=== PATIENT | female | born 1935 | race Caucasian/White ===

== ENCOUNTER 2023-05-31 13:12 | Emergency (ER) | payer MEDICARE, OTHER, SELFPAY ==
[2023-05-31 13:20] VITALS: BP 154/82; PULSE 80; RESP 18; TEMP 38.2; O2SAT 99; BMI 23.2
--- NOTE | 2023-05-31 13:27 | ED.GENADUL1 ---
HPI - General Adult General Chief complaint: Upper Respiratory Infection Stated complaint: COVID + Time Seen by Provider: 05/31/23 13:20 Source: patient Mode of arrival: walk-in Limitations: no limitations History of Present Illness HPI narrative: Patient tested positive for Covid this morning and came to the ED to get Quirino. Her symptoms started yesterday - cough, congestion, fatigue and muscle aches. Her PCP is not in this area. No GI or symptoms. Related Data Allergies Allergy/AdvReac Type Severity Reaction Status Date / Time Penicillins Allergy Unknown Verified 05/31/23 13:20 Exam Narrative Exam Narrative: Nurses notes and vital signs reviewed and patient is not hypoxic. FEBRILE 100.7F General: Well-appearing and in no apparent distress. Skin: Warm, dry, no pallor noted. Head: Normocephalic, atraumatic. Neck: Supple, non-tender. no cervical lymphadenopathy Eye: Pupils are equal, round and EOMI. No scleral icterus. Ears, Nose, Mouth, and Throat: Mild nasal mucosal hypertrophy. Oral mucosa is moist, no posterior oropharynx erythema, uvula is mid-line Cardiovascular: Regular Rate and Rhythm without murmur, gallop or rub. Respiratory: No accessory muscle use or respiratory distress. Lungs are clear to auscultation, no wheezing, rales or rhonchi Musculoskeletal: normal ROM, no calf or popliteal tenderness, no lower extremity edema/swelling GI: Abdomen is soft, non-distended. Normal bowel sounds. No tenderness to palpation. No rebound, guarding, or rigidity noted. Neurological: A&O x4. No cranial nerve dysfunction observed. No truncal ataxia. Moves all extremities. Sensation intact. Psychiatric: Cooperative and interactive. Normal mood and affect. Constitutional Vital Signs, click to edit/add: Last Vital Signs Temp 100.7 F H 05/31/23 13:20 Pulse 80 05/31/23 13:20 Resp 18 05/31/23 13:20 BP 154/82 H 05/31/23 13:20 Pulse Ox 99 05/31/23 13:20 O2 Del Method Room Air 05/31/23 13:20 Course Vital Signs Vital signs: Vital Signs Temperature 100.7 F H 05/31/23 13:20 Pulse Rate 80 05/31/23 13:20 Respiratory Rate 18 05/31/23 13:20 Blood Pressure 154/82 H 11/12/23 13:20 Pulse Oximetry 99 05/31/23 13:20 Oxygen Delivery Method Room Air 05/31/23 13:20 Temperature 100.7 F H 05/31/23 13:20 Pulse Rate 80 05/31/23 13:20 Respiratory Rate 18 05/31/23 13:20 Blood Pressure 154/82 H 05/31/23 13:20 Pulse Oximetry 99 05/31/23 13:20 Oxygen Delivery Method Room Air 05/31/23 13:20 Medical Decision Making MDM Narrative Medical decision making narrative: the patient is positive for cocaine at home. She has low-grade temperature increase. She took Tylenol about four hours ago. I ordered Paxil and for this patient. Patient advised to rest, stay at home, practice social distancing, take Motrin and Tylenol for pain and fever if not allergic, stay well hydrated with Gatorade or similar drinks if vomiting or eat as tolerated if not and take any meds as prescribed. Reviewed reasons to return including rapid increase in respiratory rate, shortness of breath, confusion, inability to keep down sips of swallowed liquids for more than 24 hours. Asked patient to encourage any ill contacts to stay home and practice similar advice. Discharge Plan Discharge Chief Complaint: Upper Respiratory Infection Clinical Impression: COVID Patient Disposition: Home, Self-Care Time of Disposition Decision: 13:37 Instructions: COVID-19 (Coronavirus Disease 2019) (ED) Stand Alone Forms: Portal Instructions Referrals: NATALIE UREÑA [Primary Care Provider] - 1 week
== END 2023-05-31 13:51 | disposition home or self-care (01) ==
PROVIDERS: Emergency Provider Emergency Medicine; PCP Family Medicine
DX: U07.1 COVID-19 (principal)
CPT/HCPCS: 99283

== ENCOUNTER 2023-06-13 12:45 | Emergency (ER) | payer MEDICARE, OTHER, SELFPAY ==
[2023-06-13] VITALS (16 sets, daily range): BP systolic 173–196; BP diastolic 84–102; PULSE 54–113; RESP 15–24; TEMP 36.5; O2SAT 98–99; BMI 22.3
--- NOTE | 2023-06-13 13:10 | ED.AMS1 ---
HPI - Altered Mental Status General Chief Complaint: Altered Mental Status Stated Complaint: CONFUSION Time Seen by Provider: 06/13/23 13:02 Source: patient Mode of arrival: walk-in History of Present Illness HPI narrative: this 88-year-old is here with family members they're concerned about increasing confusion and forgetfulness. She lives alone. Apparently her son was staying with her for several weeks while she is undergoing testing at [facility]. He is returning to [place] now she is alone again. She does not have a local practitioner family doctor. She was in this hospital several weeks ago and had Covid nineteen illness. She has not had any trauma or injury. The family member brought her in says she was confused about trying to get dressed today. She is not having any pain or discomfort headache or difficulty breathing. She is not a very reliable historian. She is not able to tell us the names of any of her medication. She does not know what year it is. She was able tells name of her doctor and she was able to tells where her son lives but her overall memory is quite limited. Related Data Home Medications Medication Instructions Recorded Confirmed acetaminophen 650 mg 650 mg PO Q12H PRN pain 06/13/23 06/13/23 tablet,extended release (Arthritis Pain Reliever) amlodipine 10 mg tablet 10 mg PO DAILY 06/13/23 06/13/23 biotin 5,000 mcg chewable tablet 5,000 mcg PO DAILY 06/13/23 06/13/23 calcium carbonate 600 mg-vitamin 1 tab PO BID 06/13/23 06/13/23 D3 5 mcg (200 unit) tablet (Calcium 600 + D(3)) linaclotide 72 mcg capsule 72 mcg PO QID 06/13/23 06/13/23 (Linzess) lisinopril 40 mg tablet 40 mg PO DAILY 06/13/23 06/13/23 loratadine 10 mg capsule 10 mg PO DAILY 06/13/23 06/13/23 psyllium husk 0.4 gram capsule 0.4 g PO DAILY 06/13/23 06/13/23 (Metamucil) vit C 250 mg-vit E 90 mg-zinc 40 1 tab PO BID 06/13/23 06/13/23 mg-copper 1 [id number] capsule (PreserVision AREDS-2) Allergies Allergy/AdvReac Type Severity Reaction Status Date / Time Penicillins Allergy Unknown Verified 05/31/23 13:20 Exam Narrative Exam Narrative: vital signs are noted. She has on hypertension meds. She is afebrile she has no respiratory distress she denies any discomfort. She follows all simple and complex commands. She knows she is at the hospital and she concurs that she getting somewhat forgetful. Her skin is warm and dry she's not pale or anemic not clammy or diaphoretic. HEENT shows no evidence of pharyngitis or airways patent. Her neck is soft and supple there is no meningeal irritation. There is no evidence craniofacial trauma injury or falls. Her lungs are clear with no wheezes rales or rhonchi Heart sounds are normal with no S3-S4 or murmur. Abdomen soft and supple to palpation. Neurologically she moves about comfortably on the cart is no focal motor neurological deficits. As mentioned earlier she does not know the day of the week she does not know the year she does know the will be the next holiday. Constitutional Vital Signs, click to edit/add: Last Vital Signs Temp 97.7 F 06/13/23 12:49 Pulse 88 06/13/23 12:49 Resp 16 06/13/23 12:49 BP 184/90 H 06/13/23 12:49 Pulse Ox 99 06/13/23 12:49 O2 Del Method Room Air 06/13/23 12:49 Course Vital Signs Vital signs: Vital Signs Temperature 97.7 F 06/13/23 12:49 Pulse Rate 88 06/13/23 12:49 Respiratory Rate 16 06/13/23 12:49 Blood Pressure 184/90 H 06/13/23 12:49 Pulse Oximetry 99 06/13/23 12:49 Oxygen Delivery Method Room Air 06/13/23 12:49 Temperature 97.7 F 06/13/23 12:49 Pulse Rate 88 06/13/23 12:49 Respiratory Rate 16 06/13/23 12:49 Blood Pressure 184/90 H 06/13/23 12:49 Pulse Oximetry 99 06/13/23 12:49 Oxygen Delivery Method Room Air 06/13/23 12:49 MDM - Altered Mental Status MDM Narrative Medical decision making narrative: patient's workup here in the hospital including lab urinalysis CT scan and chest x-ray are all negative. I don't believe she is safe to be at home by herself. I spoke with the son who is in [place] and he's got make arrangements for other family members to provide assistance. We offered them hospitalization but he declined at this time. She will need close observation and assistance at home that was explained in detail. He assures us that he'll be out of provide assistance for her at home. Discharge Plan Discharge Chief Complaint: Altered Mental Status Clinical Impression: Altered mental status Patient Disposition: Home, Self-Care Time of Disposition Decision: 14:47 Prescriptions / Home Meds: No Action amlodipine 10 mg tablet 10 mg PO DAILY lisinopril 40 mg tablet 40 mg PO DAILY Linzess 72 mcg capsule 72 mcg PO QID Patient Comments: every morning on empty stomach and 30 min before each meal PreserVision AREDS-2 250-90-40-1 mg capsule 1 tab PO BID biotin 5,000 mcg tablet,chewable 5,000 mcg PO DAILY loratadine 10 mg capsule 10 mg PO DAILY calcium carbonate-vitamin D3 [Calcium 600 + D(3)] 600 mg-5 mcg (200 unit) tablet 1 tab PO BID psyllium husk [Metamucil] 0.4 gram capsule 0.4 g PO DAILY acetaminophen [Arthritis Pain Reliever] 650 mg tablet extended release 650 mg PO Q12H PRN (Reason: pain) Additional Instructions: close assistance by the family members. Return at any time for any further change. Stand Alone Forms: Portal Instructions Referrals: NATALIE UREÑA [Primary Care Provider] - 1 week
--- NOTE | 2023-06-13 13:12 | ECG_ITS ---
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
--- NOTE | 2023-06-13 13:12 | CT_ITS ---
The [address] [address] Patient Name: HALEY TALBERT MRN: [id number] date: 1935 Sex: F Assigned Patient Location: ER Current Patient Location: ER Accession/Order Number: [id number] Exam Date: 06/13/2023 13:28 Report Date: 06/13/2023 14:00 At the request of: MAAME CLEMENTS Procedure: CT head/brain wo con CT head/brain wo con, 06/13/2023 1:28 PM EST INDICATION: Confusion COMPARISON: No prior CT scan of the head available for comparison at the time of this dictation. TECHNIQUE: Axial CT images of the brain from skull base to vertex, including portions of the face and sinuses, were obtained without contrast. Multiplanar reformatted images were generated and reviewed as needed. FINDINGS: No intracranial mass, hydrocephalus, midline shift or acute hemorrhage. No extra-axial collection. Periventricular and deep white matter microvascular ischemic change. Rodarte-white matter differentiation is preserved. The paranasal sinuses and mastoid air cells are clear. Orbits are within normal limits. No acute skull fracture. 7 mm calcified extra-axial nodule left frontal bone likely a meningioma or osteoma. CT/CT head/brain wo con IMPRESSION: No acute intracranial abnormality. Electronically authenticated by: JUDY ISAAC Date: 06/13/2023 14:00
[2023-06-13 13:27] LABS: Basophils Absolute Auto 0.1 10^3/uL (0.0-0.1); Basophils Percent Auto 0.4 % (0.2-2.0); Eosinophils Absolute Auto 0.1 10^3/uL (0.0-0.7); Eosinophils Percent Auto 0.7 % (0.9-7.0); Hematocrit 44.2 % (36.0-48.0); Hemoglobin 14.4 g/dL (12.0-16.0); Immature Granulocytes Abs Auto 0.04 10^3/uL (0.00-0.03); Immature Granulocytes Pct Auto 0.3 % (0.0-0.5); Lymphocytes Absolute Auto 1.5 10^3/uL (1.2-3.8); Mean Corpuscular HGB Conc 32.6 g/dL (29.9-35.2); Mean Corpuscular Hemoglobin 28.7 pg (26.7-34.0); Mean Corpuscular Volume 88.2 fL (81.0-99.0); Mean Platelet Volume 10.6 fL (9.5-13.5); Monocytes Percent Auto 8.9 % (1.7-12.0); Neutrophils Absolute Auto 8.9 10^3/uL (1.4-6.5); Neutrophils Percent Auto 76.7 % (43.0-75.0); Platelet Count 386 10^3/uL (150-450); Red Blood Count 5.01 10^6/uL (4.20-5.40); Red Cell Distribution Width 13.7 % (11.0-15.0); White Blood Count 11.6 10^3/uL (4.0-11.0)
[2023-06-13 13:38] LABS: Alanine Aminotransferase 41 U/L (14-59); Albumin Globulin Ratio 1.2; Albumin Level 4.3 g/dL (3.4-5.0); Alkaline Phosphatase 82 U/L (46-116); Aspartate Amino Transferase 34 U/L (15-37); BUN Creatinine Ratio 16.2; Bilirubin Total 0.7 mg/dL (0.2-1.0); Calcium 10.9 mg/dL (8.5-10.1); Carbon Dioxide 29.5 mmol/L (21.0-32.0); Chloride 93 mmol/L (98-107); Estimated GFR (African America >60 (>=60); Estimated GFR (Non-African Ame >60 (>=60); Globulin 3.7 g/dL; Glucose 110 mg/dL (74-106); Potassium 3.5 mmol/L (3.5-5.1); Sodium 134 mmol/L (136-145)
[2023-06-13 13:40] LABS: Lactate/Lactic Acid 1.5 mmol/L (0.4-2.0)
[2023-06-13 13:46] LABS: Thyroid Stimulating Hormone 2.992 uIU/mL (0.358-3.740)
[2023-06-13 13:55] LABS: PCO2 VBG 47.8 mmHg (40.0-52.0); pH VBG 7.409 (7.330-7.430)
[2023-06-13 14:04] LABS: Bilirubin Urine NEGATIVE (NEGATIVE); Blood Urine TRACE-I (NEGATIVE); Clarity Urine CLEAR (CLEAR); Color Urine LT. YELLOW (YELLOW); Glucose Urine UA NEGATIVE (NEGATIVE); Ketones Urine TRACE mg/dL (NEGATIVE); Leukocyte Esterase Urine NEGATIVE (NEGATIVE); Nitrite Urine NEGATIVE (NEGATIVE); Protein Urine NEGATIVE (NEG/TRACE); Urobilinogen Urine 0.2 EU/dL (0.2-1.0); pH Urine 7.5 (5.0-9.0)
[2023-06-13 14:06] LABS: Ammonia 23 umol/L (11-32)
[2023-06-13 14:12] LABS: Bacteria Urine TRACE #/HPF (NONE SEEN); Mucus Urine NONE SEEN (NONE SEEN); RBC Urine 0-2 #/HPF (0-2); Squamous Epithelial Cell Urine NONE SEEN #/LPF (NONE/RARE); WBC Urine NONE SEEN #/HPF (NONE SEEN)
[2023-06-13 14:13] LABS: Cast Seen? NONE SEEN #/LPF (NONE SEEN); Crystals Seen? None Seen #/HPF (None Seen)
--- NOTE | 2023-06-13 14:37 | XR_ITS ---
The [address] [address] Patient Name: HALEY TALBERT MRN: [id number] date: 1935 Sex: F Assigned Patient Location: ED.MAIN Current Patient Location: ER Accession/Order Number: [id number] Exam Date: 06/13/2023 14:42 Report Date: 06/13/2023 15:00 At the request of: MAAME CLEMENTS Procedure: XR chest 1V PROCEDURE: XR chest 1V DATE: 06/13/2023 1:42 PM PROBATION MANAGER COMPARISONS: None. CLINICAL INDICATION: 88 years Female confusion FINDINGS: The heart size is accentuated by the lordotic radiographic technique overall, I feel the heart size is normal. The pulmonary vasculature is not congested. The lungs are clear. There is no evidence of pleural effusion or pneumothorax. XR/XR chest 1V IMPRESSION: This portable lordotic chest radiograph is within normal limits. Electronically authenticated by: GERARD MENA Date: 06/13/2023 15:00
== END 2023-06-13 15:04 | disposition home or self-care (01) ==
PROVIDERS: Emergency Provider Emergency Medicine Emergency Medical Services; PCP Family Medicine
DX: R41.82 Altered mental status, unspecified (principal); Z86.16 Personal history of COVID-19; Z79.899 Other long term (current) drug therapy
CPT/HCPCS: 36415; 70450; 71045; 80053; 81001; 82140; 82800; 83605; 84443; 85025; 87040; 93005; 99285